=== PATIENT | male | born 1965 | race Caucasian/White ===

== ENCOUNTER 2021-10-06 11:43 | Emergency (ER) | payer OTHER ==
[~2021-10-06] VITALS: Ht 170.2 cm; Wt 76.0 kg
[2021-10-06] MEDS ORDERED: TOVI4TAB PO (12:35)
[2021-10-06] MEDS ORDERED: FLOM0.4C39 PO (12:35)
[2021-10-06] MEDS ORDERED: BOOSTRIX/ADACEL VACCINE (DIPHTH/PERTUSS/ACELL/TETANUS) 0.5ML SYR IM ONE (15:45)
[2021-10-06] MEDS ORDERED: KETOROLAC 30 MG/ML 1ML VIAL IM ONE (15:45)
[2021-10-06] MEDS ORDERED: BACITRACIN OINTMENT 30GM TUBE TOP ONE (15:45)
[2021-10-06] MEDS ORDERED: PROHANCE 279.3MG/ML 15ML VIAL As Ordered ONE (19:24)
[2021-10-06 21:12] VITALS: BP 141/81
[2021-10-06] MEDS ORDERED: NORCO, ANEXSIA 5/325MG TABLET (HYDROcodone/ACETAMINOPHEN) PO ONE ×2 (21:20→21:45)
[2021-10-06] MEDS ORDERED: HYDR-3713 PO (21:44)
== END 2021-10-06 22:15 | disposition home or self-care (01) ==
LOC: M ED 11:43
DX: S22.42XA Multiple fractures of ribs, left side, initial encounter for closed fracture (principal); S00.01XA Abrasion of scalp, initial encounter; W17.89XA Other fall from one level to another, initial encounter; R90.89 Other abnormal findings on diagnostic imaging of central nervous system; Y92.9 Unspecified place or not applicable; Y93.9 Activity, unspecified; Y99.9 Unspecified external cause status
CPT/HCPCS: 70450; 70553; 71101; 72125; 90471; 90715; 96372; 99284; A9576; J1885